=== PATIENT | male | born 1970 | race Caucasian/White ===

== ENCOUNTER → 2016-08-13 | Outpatient (CLI) | payer OTHER ==
[~2016-08-13] MED LIST: ASPIRIN E.C. 8181 MG PO; BACTRIM DS TAB1 EACH PO; EC-NAPROSYN500 MG PO; EUCERIN1 CRE TP; LISINOPRIL AND1 TA1 PO; MELOXICAM15 MG PO; MULTIVITAMIN1 SGL PO; NORCO 325 MG-51 TA1 PO; SIMVASTATIN40 M1 PO; VIAGRA100 M1 PO; ZYLOPRIM 300MG300 MG PO; ZYRTEC ALLERGY10 MG PO
[2016-08-13 16:45] VITALS: BP 158/102
[2016-08-13 18:24] VITALS: BP 140/86
== END ==
LOC: AMSURD 15:40 → RAD 15:40
DX: M54.42 Lumbago with sciatica, left side (principal)
CPT/HCPCS: J1170; J2405; J3010

== ENCOUNTER → 2020-04-10 | Outpatient (CLI) | payer OTHER ==
[2016-08-13 18:24] VITALS: BP 140/86
== END ==
LOC: LAB 08:50
DX: R50.9 Fever, unspecified (principal); R05 Cough; R51.9 Headache, unspecified; R09.81 Nasal congestion; M79.10 Myalgia, unspecified site; R53.83 Other fatigue; Z20.828 Contact with and (suspected) exposure to other viral communicable diseases

== ENCOUNTER → 2020-04-21 | Outpatient (CLI) | payer OTHER ==
[2016-08-13 18:24] VITALS: BP 140/86
== END ==
LOC: LAB 09:58
DX: R51.9 Headache, unspecified (principal); R05 Cough; M79.10 Myalgia, unspecified site; R53.83 Other fatigue; Z20.828 Contact with and (suspected) exposure to other viral communicable diseases

== ENCOUNTER → 2021-07-28 | Outpatient (CLI) | payer OTHER ==
[2021-07-28 08:58] LABS: BASO # 0.04 K/mm3 (0.02-0.10); EOS # 0.14 K/mm3 (0.04-0.40); EOS % 2.1 % (0.0-4.0); HEMATOCRIT 37.4 % (42.0-52.0); HEMOGLOBIN 12.4 g/dL (13.5-18.0); MEAN CELL VOLUME 92 fl (78-100); MEAN CORPUSCULAR HEMOGLOBIN 30 pg (27-31); MEAN CORPUSCULAR HGB CONC 33 g/dL (33-37); MEAN PLATELET VOLUME 8.4 fl (7.4-10.4); MONO # 0.51 K/mm3 (0.20-0.80); NEU # 3.91 K/mm3 (1.40-6.50); PLATELET COUNT 231 K/mm3 (130-400); RED BLOOD COUNT 4.08 M/mm3 (4.20-5.60); RED CELL DISTRIBUTION WIDTH 13.2 % (11.5-14.5); WHITE BLOOD COUNT 6.6 K/mm3 (4.8-10.8)
[2021-07-28 09:04] LABS: ALBUMIN 3.9 g/dL (3.5-5.0)
[2021-07-28 09:05] LABS: CALCIUM 9.8 mg/dL (8.3-10.5)
[2021-07-28 09:06] LABS: TOTAL PROTEIN 7.5 g/dL (6.4-8.3)
[2021-07-28 09:08] LABS: TOTAL BILIRUBIN 0.4 mg/dL (0.2-1.2)
== END ==
LOC: LAB 08:12
PROVIDERS: Family Medicine
DX: Z00.00 Encounter for general adult medical examination without abnormal findings (principal); E78.5 Hyperlipidemia, unspecified; E11.9 Type 2 diabetes mellitus without complications

== ENCOUNTER → 2021-11-30 | Outpatient (CLI) | payer OTHER ==
[~2021-11-30] MED LIST changes: +ALLOPURINOL300 M1 PO; +AMOXICILLIN AND1 TA2 PO; +ATORVASTATIN CA40 MG PO; +BENZONATATE100 M2 PO; +PREDNISONE20 M1 PO; +PROAIR HFA0.09 MG/AC IH
[2021-11-30 09:41] LABS: BASO # 0.04 K/mm3 (0.02-0.10); EOS # 0.04 K/mm3 (0.04-0.40); EOS % 0.5 % (0.0-4.0); HEMATOCRIT 41.9 % (42.0-52.0); LYMPH# 1.37 K/mm3 (1.50-4.00); MEAN CELL VOLUME 97 fl (78-100); MEAN CORPUSCULAR HEMOGLOBIN 32 pg (27-31); MEAN CORPUSCULAR HGB CONC 33 g/dL (33-37); MEAN PLATELET VOLUME 7.9 fl (7.4-10.4); NEU # 6.13 K/mm3 (1.40-6.50); PLATELET COUNT 157 K/mm3 (130-400); RED BLOOD COUNT 4.33 M/mm3 (4.20-5.60); RED CELL DISTRIBUTION WIDTH 13.3 % (11.5-14.5); WHITE BLOOD COUNT 8.2 K/mm3 (4.8-10.8)
== END ==
LOC: LAB 08:54
PROVIDERS: Family Medicine
DX: G11.10 Early-onset cerebellar ataxia, unspecified (principal); J30.9 Allergic rhinitis, unspecified; M54.9 Dorsalgia, unspecified; I10 Essential (primary) hypertension; E66.01 Morbid (severe) obesity due to excess calories; E78.00 Pure hypercholesterolemia, unspecified; E11.9 Type 2 diabetes mellitus without complications

== ENCOUNTER → 2022-03-23 | Outpatient (CLI) | payer OTHER | LOC: RAD 09:15 | DX: G31.9 Degenerative disease of nervous system, unspecified (principal); R26.89 Other abnormalities of gait and mobility ==

== ENCOUNTER → 2023-02-08 | Outpatient (CLI) | payer BC | LOC: LAB 10:18 | DX: R20.2 Paresthesia of skin (principal); R29.898 Other symptoms and signs involving the musculoskeletal system; G31.84 Mild cognitive impairment of uncertain or unknown etiology ==

== ENCOUNTER → 2024-03-27 | Outpatient (CLI) | payer BC ==
[2024-03-27 08:13] LABS: BASO # 0.04 K/mm3 (0.02-0.10); EOS # 0.03 K/mm3 (0.04-0.40); EOS % 0.3 % (0.0-4.0); HEMATOCRIT 39.6 % (42.0-52.0); HEMOGLOBIN 13.2 g/dL (13.5-18.0); LYMPH# 1.77 K/mm3 (1.50-4.00); MEAN CELL VOLUME 93 fl (78-100); MEAN CORPUSCULAR HEMOGLOBIN 31 pg (27-31); MEAN CORPUSCULAR HGB CONC 33 g/dL (33-37); MEAN PLATELET VOLUME 8.1 fl (7.4-10.4); MONO # 1.03 K/mm3 (0.20-0.80); NEU # 8.31 K/mm3 (1.40-6.50); PLATELET COUNT 269 K/mm3 (130-400); RED BLOOD COUNT 4.27 M/mm3 (4.20-5.60); WHITE BLOOD COUNT 11.3 K/mm3 (4.8-10.8)
[2024-03-27 08:22] LABS: CALCIUM 10.3 mg/dL (8.3-10.5)
== END ==
LOC: LAB 08:00
DX: R22.31 Localized swelling, mass and lump, right upper limb (principal)

== ENCOUNTER → 2024-03-30 | Outpatient (CLI) | payer BC | LOC: RAD 12:04 | DX: M86.121 Other acute osteomyelitis, right humerus (principal); L03.90 Cellulitis, unspecified ==